=== PATIENT | female | born 2000 | race Caucasian/White ===

== ENCOUNTER 2019-07-26 14:16 | Emergency (ER) | payer BC ==
[2019-07-26 14:40] VITALS: BP 132/88
[2019-07-26 14:54] LABS: Influenza A Molecular Negative (Negative); Influenza B Molecular Negative (Negative)
--- NOTE | 2019-07-26 15:04 | UC ---
Throat Pain/Nasal [place] HPI - HPI Summary HPI Summary: 2 days of sore throat and enlareged tonsils, subjective fever, malaise. - History of Current Complaint Chief Complaint: UCRespiratory Stated Complaint: SORE THROAT COUGH WEAK Time Seen by Provider: 07/26/19 14:57 Hx Obtained From: Patient Hx Last Menstrual Period: 07/20/19 Onset/Duration: Gradual Onset Severity: Mild Pain Intensity: 2 Cough: None Associated Signs & Symptoms: Positive: Dysphagia - Epiglottits Risk Factors Epiglottis Risk Factors: Negative - Allergies/Home Medications Allergies/Adverse Reactions: Allergies Allergy/AdvReac Type Severity Reaction Status Date / Time seasonal Allergy Eyes Uncoded 07/26/19 14:40 Itchy/Swollen/Red/Watery Home Medications: Home Medications Ibuprofen/Pseudoephedrine HCl [Advil Cold & Sinus Caplet] 1 each PO Q4HR PRN [History Confirmed 07/26/19] O C 1 tab PO QPM 07/26/19 [History Confirmed 07/26/19] Vit C/Ascorb Sod/Multivit-Min [Emergen-C Vitamin C] 3 chw PO DAILY 07/26/19 [ History Confirmed 07/26/19] PMH/Surg Hx/FS Hx/Imm Hx Previously Healthy: Yes - Surgical History Surgical History: Yes Surgery Procedure, Year, and Place: wisdom teeth - Family History Known Family History: Positive: Non-Contributory - Social History Occupation: Student Lives: Dormitory/Roommates Alcohol Use: Occasionally Substance Use Type: None Smoking Status (MU): Never Smoked Tobacco Review of Systems All Other Systems Reviewed And Are Negative: Yes Constitutional: Positive: Fatigue Skin: Positive: Negative Eyes: Positive: Negative ENT: Positive: Sore Throat Respiratory: Positive: Negative Cardiovascular: Positive: Negative Gastrointestinal: Positive: Negative Genitourinary: Positive: Negative Motor: Positive: Negative Neurovascular: Positive: Negative Musculoskeletal: Positive: Myalgia Neurological/Mental Status: Positive: Negative Psychological: Positive: Negative Is Patient Immunocompromised?: No Physical Exam Triage Information Reviewed: Yes Appearance: Well-Appearing, No Pain Distress Vital Signs: Initial Vital Signs Temp 99 F 07/26/19 14:34 Pulse 135 07/26/19 14:34 Resp 20 07/26/19 14:34 BP 132/88 07/26/19 14:34 Pulse Ox 100 07/26/19 14:34 ENT: Positive: Pharyngeal erythema, Tonsillar swelling. Negative: Tonsillar exudate Dental Exam: Normal Neck: Positive: Supple, Nontender, Enlarged Nodes @ - tonsillar Respiratory: Positive: Lungs clear, Normal breath sounds Cardiovascular Exam: Normal Abdomen Description: Positive: Nontender, No Organomegaly, Soft Musculoskeletal Exam: Normal Neurological Exam: Normal Psychological Exam: Normal Skin Exam: Normal Diagnostics - Laboratory Lab Results: Rapid flu and rapid strep negative. Throat Pain/Nasal Course/Dx - Course Course Of Treatment: Clinical findings suggest tonsillitis as priamry source of infection. Discussed could be viral, early mono, but here on day 2 of symptoms. - Differential Dx/Diagnosis Differential Diagnosis/HQI/PQRI: Influenza, Pharyngitis, Tonsillitis, URI Provider Diagnosis: Tonsillitis Discharge ED - Sign-Out/Discharge Documenting (check all that apply): Patient Departure All imaging exams completed and their final reports reviewed: No Studies - Discharge Plan Condition: Stable Disposition: HOME Patient Education Materials: Tonsillitis (ED) Referrals: No Primary Care Phys,NOPCP [Primary Care Provider] - Additional Instructions: Your strep test is negative, as is flu testing. The infection which you have could be viral and is most likely to be self limiting. It is possible that you have very early mononucleosus, but at this time there is no spleen enlargement and you do not have many enlarged lymph nodes. Monitor your temperature, and follow up with your primary care if you have persistent sore throat or increasing fever. - Billing Disposition and Condition Condition: STABLE Disposition: Home
== END 2019-07-26 15:36 | disposition home or self-care (01) ==
LOC: UCCORT 14:16
DX: J03.90 Acute tonsillitis, unspecified (principal); M79.10 Myalgia, unspecified site; Z91.09 Other allergy status, other than to drugs and biological substances
CPT/HCPCS: 87651; 99201; G0463